=== PATIENT | female | born 1950 | race Caucasian/White ===

== ENCOUNTER 2020-04-11 22:40 | Inpatient (IN) | payer MEDICARE, OTHER ==
[~2020-04-11] VITALS: Ht 154.9 cm; Wt 91.2 kg
[~2020-04-11 22:40] MED LIST: ALBIPROI INH; ALBU8HFA2; ALBU90OI INH; ASPI325EC PO; ASPI81EC; ATEN25 PO; ATOR20 PO; BUPROPION PO; CITA20; DULO30 PO; FLUSAL5005 IH; FLUSAL5005 INH; FURO20 PO; HIGH BLOOD PRESSURE PO; HYDACE5 PO; HYDACE5325 PO; HYDCHL12.5; HYDCHL12.5 PO; HYDCHL25 PO; HYDPAM50; LISHYD1012 PO; LISHYD2025; LISI10 PO; LISI20 PO; LOVA20; METO25ER PO; METO50ER PO; NAPR500 PO; OMEP20ER PO; OMEPRAZOLE MAGN20 MG PO; ONDA8ODT MM; OXYACE5T PO; OXYC5 PO; POLY17UD PO; POTCHL20ER PO; PROM25 PO; SULFAMETHOXAZOLE PO
[2020-04-12 01:26] LABS: BASOPHILS ABSOLUTE AUTO 0.04 K/mm3 (0.00-0.23); BASOPHILS PERCENT AUTO 0 % (0-2); EOSINOPHILS ABSOLUTE AUTO 0.01 K/mm3 (0.00-0.68); EOSINOPHILS PERCENT AUTO 0 % (0-6); Hematocrit 44.4 % (33.0-51.0); IMMATURE GRAN ABSOLUTE AUTO 0.06 K/mm3 (0.00-0.10); IMMATURE GRAN PERCENT AUTO 1 % (0-1); LYMPHOCYTES ABSOLUTE AUTO 1.07 K/mm3 (0.84-5.20); LYMPHOCYTES PERCENT AUTO 8 % (21-46); MONOCYTES ABSOLUTE AUTO 0.73 K/mm3 (0.16-1.47); MONOCYTES PERCENT AUTO 6 % (4-13); Mean Corpuscular HGB 33.7 pg (26.0-34.0); Mean Corpuscular HGB Conc 33.8 g/dL (31.5-36.5); Mean Corpuscular Volume 100 fL (80-100); Mean Platelet Volume 9.9 fL (9.1-12.4); NEUTROPHILS PERCENT AUTO 85 % (41-73); Platelet Count 264 K/mm3 (150-400); RDW Standard Deviation 47.4 fL (35.1-46.3); Red Blood Cell Count 4.45 M/mm3 (3.80-5.20); White Blood Cell Count 12.81 K/mm3 (4.00-11.30)
[2020-04-12 01:38] LABS: Albumin, Blood 3.8 g/dL (3.4-5.0); Bilirubin, Total 0.6 mg/dL (0.1-1.0); Bun/Creatinine Ratio 19.2 (12.0-20.0); Calcium, Blood 9.7 mg/dL (8.5-10.1); Creatinine, Blood 0.99 mg/dL (0.40-1.00); Potassium, Blood 4.1 mmol/L (3.5-5.5); Total Protein, Blood 7.8 g/dL (6.4-8.2)
[2020-04-12 01:41] LABS: International Normalized Ratio 0.97; Prothrombin Time Results 10.4 Sec (9.7-11.5)
[2020-04-12] MEDS ORDERED: KLOR-CON 1010 ME1 PO (04:39)
[2020-04-12] MEDS ORDERED: ATORVASTATIN CA20 MG PO (04:40)
[2020-04-12] MEDS ORDERED: HYDROXYZINE PAM25 MG PO (04:41)
[2020-04-12] MEDS ORDERED: FUROSEMIDE20 MG PO (04:41)
[2020-04-12] MEDS ORDERED: ZOLOFT50 MG PO (04:44)
[2020-04-12] MEDS ORDERED: LISI20 PO (04:46)
--- NOTE | 2020-04-12 05:00 | NUR ---
PT ARRIVED TO UNIT @ 0430 VIA STRETCHER, DENIES PAIN AT THIS TIME, RECEIVED PAIN MEDICATION SHORTLY BEFORE LEAVING ER.
[2020-04-12 06:14] LABS: Influenza A, PCR NEGATIVE (NEGATIVE); Influenza B, PCR NEGATIVE (NEGATIVE); Resp Syncytial Virus, PCR NEGATIVE (NEGATIVE); SARS-Cov-2 (COVID-19) PCR, MMC NEGATIVE (NEGATIVE)
--- NOTE | 2020-04-12 07:31 | NUR ---
SHIFT SUMMARY PT ARRIVED TO THE FLOOR @ 0430, ADMISSION COMPLETE, NPO SINCE MIDNIGHT IN ANTICIPATION FOR SURGERY, S/P R DISTAL FEMUR SPIRAL FX. PAIN WELL CONTROLLED PER EMAR. CALL LIGHT IN REACH, REPORT GIVEN TO DAY RN.
--- NOTE | 2020-04-12 10:25 | NUR ---
CARE COORDINATION REFERRAL - ADMIT: 04/11/20 DISCHARGE: DX: RIGHT FEMUR SHAFT FRACTURE CC: SHERRY BLAYNE CALL: RESIDENCE: HOME CAREGIVER: LYNNETTE GODINEZ, DAUGHTER, RENATA DOTY, DX: BILATERAL OSTEOARTHRITIS OF KNEES, COPD, CAD, HTN, SEE LIST DME: COMPRESSION STOCKINGS CCM: REFERRAL 2020 HOME HEALTH: NONE SUMMARY:
--- NOTE | 2020-04-12 16:30 | NUR ---
SPOKE WITH PT DAUGHTER TOMMY AT THIS TIME AND UPDATED HER ON PT'S PLAN OF CARE.
--- NOTE | 2020-04-12 17:01 | NUR ---
SUMMARY: PT ADMITTED FOR FEMUR FX. NO ACUTE CHANGE TODAY. VSS, A/O, USING CALL LIGHT. PT MEDICATED FOR PAIN PER EMAR. PT HAS HAD SOME ANXIETY ABOUT HER CAT WHO IS AT HOME, AND ITS WELL BEING. PT STATES THAT HER AUNT IS STOPPING BY TO CHECK ON IT. PT UNABLE TO VOID USING BEDPAN. PT ABLE TO TRANSFER TO [facility] WITH 2 ASSIST, FWW AND GAIT BELT TO VOID. SURGERY CONSULTED, PLAN IS FOR FEMUR REPAIR TOMORROW. NO SAFETY CONCERNS AT THIS TIME.
[2020-04-12 20:38] LABS: Source, Urine Catheter
[2020-04-12 20:40] LABS: Blood, Urine 2+ (Neg); Glucose Qualitative, Urine Neg (Neg); Ketones, Urine 4+ (Neg); Leukocyte Esterase, Urine Neg (Neg); Nitrite, Urine Neg (Neg); Protein, Urine 1+ (Neg); Urobilinogen, Urine 1+ (Normal)
[2020-04-12 20:49] LABS: Appearance, Urine Clear (Clear); Bilirubin, Urine 1+ (Neg); Color, Urine Amber (P-Yellow)
[2020-04-12 20:54] LABS: Amorphous Light (0-Heavy); Bacteria Few /hpf; Mucus Light (0-Heavy); Squamous Epithelial Cells Few /hpf (Few); White Blood Cells, Urine Rare /hpf (0-5)
--- NOTE | 2020-04-13 07:28 | NUR ---
SUMMARY PT WITH PLANS FOR OR TODAY.UNABLE TO FULLY ASSESS SKIN BUTTOCKS/BACK DUE TO PAIN WITH REPOSITIONING.PHILIP DRAINING.SUBLIMAZE FOR PAIN IS HELPING, BUT NO TABLE TO COMPLETELY REMOVE PAIN.CHLOR-HEX WASH COMPLETED TO R HIP/THIGH.
--- NOTE | 2020-04-13 10:35 | NUR ---
PT TO OR
--- NOTE | 2020-04-13 10:43 | NUR ---
PT TRANSFERED TO [facility] FROM FLOOR VIA GURNY. History, Chart, Medications and Allergies reviewed before start of procedure. Lungs clear T/O to Auscultation. Patient confirms NPO status and agrees with scheduled surgery. Pre-Op teaching done. Pt verbalizes understanding.
--- NOTE | 2020-04-13 16:04 | NUR ---
ARRIVED TO UNIT FROM PACU REPORTS PAIN ADEQUATELY CONTROLLED. NILE WRAP TO RLE CDI. PWD. ADMINISTERED TXA PER ORDERS. VSS. CALL LIGHT IN REACH.
--- NOTE | 2020-04-13 17:13 | NUR ---
SUMMARY S/P R FEMUR FX REPAIR THIS SHIFT. NILE WRAP TO RLE CDI. VSS. PT SLEEPING AT THIS TIME. DOES NOT APPEAR TO BE IN ANY DISTRESS. CALL LIGHT IN REACH. TXA COMPLETED POST OP PER ORDERS. PHILIP DRAINING DARK YELLOW URINE.
--- NOTE | 2020-04-14 07:35 | NUR ---
SUMMARY PT REQUIRING FREQUENT REDIRECT TONIGHT FOR REPOSITIONING AND CARE.PT TENDSING TO GET ANXIOUS AND GRABS AT TUBES AND RAILS BEFORE WE EVEN START MOVING HER. ALTHOUGH IS ABLE TO ASSSIT FOR BED REPOSITIONING SIDE WHEN CALMS AND FOLLOWS DIRECT. PT HAS HAD SOME FORGETFULNESS TONIGHT AND REPEATS SELF SINCE STARTING PAIN MEDS. I SPOKE WITH DAY RN ABOUT POSSIBILITY OF GETTING SOMETHING ELSE PO FOR PAIN WITH ROUNDS.? TRAMADOL?
--- NOTE | 2020-04-14 10:30 | NUR ---
pt worked w/therapy
--- NOTE | 2020-04-14 14:40 | NUR ---
04/14/20- PT HAS WORKED WITH PT TODAY, SHE IS NON-WEIGHT BEARING ON RIGHT LEG. PT IS RECOMMENDING D/C TO SNF AND FWW IF SHE DOES NOT ALREADY HAVE ONE. NO PLAN FOR D/C AT THIS TIME. -TEVIN 04/13/20- PT HAD SURGERY TODAY.-TEVIN
--- NOTE | 2020-04-14 17:25 | NUR ---
SUMMARY NO ACUTE CHANGES T/O SHIFT. PT WORKED W/THERAPY. WAS ABLE TO STAND AT BEDSIDE W/NWB BUT NOT ABLE TO PIVOT TO CHAIR. MEDICATED PER ORDERS FOR PAIN T/O SHIFT. CALL LIGHT IN REACH.
[2020-04-15 04:42] LABS: BASOPHILS ABSOLUTE AUTO 0.05 K/mm3 (0.00-0.23); BASOPHILS PERCENT AUTO 1 % (0-2); EOSINOPHILS ABSOLUTE AUTO 0.14 K/mm3 (0.00-0.68); EOSINOPHILS PERCENT AUTO 2 % (0-6); Hematocrit 36.2 % (33.0-51.0); Hemoglobin 11.9 g/dL (11.5-16.0); IMMATURE GRAN ABSOLUTE AUTO 0.02 K/mm3 (0.00-0.10); IMMATURE GRAN PERCENT AUTO 0 % (0-1); LYMPHOCYTES ABSOLUTE AUTO 1.65 K/mm3 (0.84-5.20); LYMPHOCYTES PERCENT AUTO 26 % (21-46); MONOCYTES ABSOLUTE AUTO 0.81 K/mm3 (0.16-1.47); MONOCYTES PERCENT AUTO 13 % (4-13); Mean Corpuscular HGB 33.7 pg (26.0-34.0); Mean Corpuscular HGB Conc 32.9 g/dL (31.5-36.5); Mean Corpuscular Volume 103 fL (80-100); Mean Platelet Volume 9.4 fL (9.1-12.4); NEUTROPHILS ABSOLUTE AUTO 3.77 K/mm3 (1.96-9.15); NEUTROPHILS PERCENT AUTO 59 % (41-73); Platelet Count 211 K/mm3 (150-400); RDW Standard Deviation 48.9 fL (35.1-46.3); Red Blood Cell Count 3.53 M/mm3 (3.80-5.20); White Blood Cell Count 6.44 K/mm3 (4.00-11.30)
[2020-04-15 05:08] LABS: Albumin, Blood 2.5 g/dL (3.4-5.0); Anion Gap 4 mmol/L (6-16); Blood Urea Nitrogen 21 mg/dL (8-24); Bun/Creatinine Ratio 29.5 (12.0-20.0); CO2, Blood 30 mmol/L (21-32); Calcium, Blood 8.9 mg/dL (8.5-10.1); Chloride, Blood 107 mmol/L (98-108); Creatinine, Blood 0.71 mg/dL (0.40-1.00); Glomerular Filtration Rate >60 (60-); Glucose, Blood 110 mg/dL (70-99); Magnesium, Blood 1.8 mg/dL (1.6-2.4); Phosphorus, Blood 2.9 mg/dL (2.5-4.9); Potassium, Blood 3.8 mmol/L (3.5-5.5); Sodium, Blood 141 mmol/L (136-145); Thyroid Stimulating Hormone 0.234 uIU/mL (0.360-4.800)
--- NOTE | 2020-04-15 05:22 | NUR ---
SHIFT SUMMARY NO ACUTE CHANGES AT THIS TIME. PT SLEPT T/O SHIFT. PT REPORT PAIN, PAIN MANAGED WITH 10MG NORCO Q4, REPORTS RELIEF AFTER PAIN MEDS. VSS. TOTAL OF URINE OUTPUT OF 200MLS T/O THE SHIFT. WITH DARK YELLOW URINE. CATHETER IN PLACED, PATENT AND INTACT. ENC PT TO DRINK MORE FLUIDS. PT TOLERATING REG DIET. PT DENIES N/V. R SIDE FEMUR SURG SITE WITH AQUACEL DRESSING REMAIN CDI. CALL LIGHT WITHIN REACH.
--- NOTE | 2020-04-15 17:33 | NUR ---
SHIFT SUMMARY PT A&OX4, VSS, POD 2 RLE ORIF, AQUACEL DRY/INTACT. PAIN MANAGED WITH 10 MG NORCO. SANDRA PO, DENIES N&V. PHILIP OUT, PT VOIDED 100. STAND W/FWW/GB, CHAIR/BSC. EXTREMELY HABEMATOLEL, SPEAK INTO L EAR/HEARING AID. DAUGHTERS AT BEDSIDE, BOTH REPORT PT AND THEY NOW AGREE PT SHOULD GO TO SNF. WILL REPORT TO ONCOMING ARLET RN.
[2020-04-16 04:31] LABS: BASOPHILS ABSOLUTE AUTO 0.04 K/mm3 (0.00-0.23); BASOPHILS PERCENT AUTO 1 % (0-2); EOSINOPHILS ABSOLUTE AUTO 0.18 K/mm3 (0.00-0.68); EOSINOPHILS PERCENT AUTO 4 % (0-6); Hematocrit 37.6 % (33.0-51.0); Hemoglobin 11.9 g/dL (11.5-16.0); IMMATURE GRAN ABSOLUTE AUTO 0.02 K/mm3 (0.00-0.10); IMMATURE GRAN PERCENT AUTO 0 % (0-1); LYMPHOCYTES ABSOLUTE AUTO 1.46 K/mm3 (0.84-5.20); LYMPHOCYTES PERCENT AUTO 29 % (21-46); MONOCYTES ABSOLUTE AUTO 0.72 K/mm3 (0.16-1.47); MONOCYTES PERCENT AUTO 15 % (4-13); Mean Corpuscular HGB Conc 31.6 g/dL (31.5-36.5); Mean Corpuscular Volume 104 fL (80-100); Mean Platelet Volume 9.5 fL (9.1-12.4); NEUTROPHILS ABSOLUTE AUTO 2.54 K/mm3 (1.96-9.15); NEUTROPHILS PERCENT AUTO 51 % (41-73); Platelet Count 231 K/mm3 (150-400); RDW Coefficient Variation 12.9 % (11.7-14.2); RDW Standard Deviation 49.1 fL (35.1-46.3); Red Blood Cell Count 3.61 M/mm3 (3.80-5.20); White Blood Cell Count 4.96 K/mm3 (4.00-11.30)
[2020-04-16 04:56] LABS: Albumin, Blood 2.4 g/dL (3.4-5.0); Anion Gap 5 mmol/L (6-16); Blood Urea Nitrogen 19 mg/dL (8-24); Bun/Creatinine Ratio 33.6 (12.0-20.0); CO2, Blood 30 mmol/L (21-32); Calcium, Blood 9.1 mg/dL (8.5-10.1); Chloride, Blood 108 mmol/L (98-108); Creatinine, Blood 0.57 mg/dL (0.40-1.00); Glomerular Filtration Rate >60 (60-); Glucose, Blood 103 mg/dL (70-99); Magnesium, Blood 1.7 mg/dL (1.6-2.4); Phosphorus, Blood 2.5 mg/dL (2.5-4.9); Sodium, Blood 143 mmol/L (136-145)
--- NOTE | 2020-04-16 05:08 | NUR ---
SHIFT SUMMARY POD#3. AAOX4/[place]. DISCOMFORT DECREASED WITH 2 OXYCODONE X2 THIS SHIFT. NO NAUSEA/EMESIS. DRESSING TO RIGHT LE C/D/I. SIPS FLUIDS T/O NIGHT. RESTED WELL. UP TO BSC 1 PERSON MODERATE ASSISTANCE. 320cc YELLOW URINE OUT. PT CURRENTLY RESTING IN BED WITH CALL LIGHT IN REACH.
--- NOTE | 2020-04-16 15:40 | NUR ---
SHIFT SUMMARY PT A&OX4, VSS/RA. POD3 RLE ORIF, AQUACEL X2 CDI, TEDS/SCDS; STAND PIVOT WITH FWW & GB, NWB TO BSC AND CHAIR/BED. PAIN MANAGED WITH 10 MG OXY AND TYLENOL. VOIDING WELL; BOWEL CARE GIVEN. SANDRA PO, DENIES N&V. DAUGHTERS AT BEDSIDE; REPORT PT IS AGREEABLE TO SNF. WILL REPORT TO NEXT RN.
--- NOTE | 2020-04-16 19:31 | NUR ---
RECEIVED REPORT FROM DAY SHIFT RN. PT RESTING QUIETLY WITH SNORING RESPIRATIONS.
--- NOTE | 2020-04-17 08:00 | NUR ---
SHIFT SUMMARY: MITCHELL IS A&OX4, SLOW TO RESPOND AND VERY HARD OF HEARING. VSS, NO ACUTE EVENTS OVERNIGHT. SHE IS TOLERATING PO INTAKE WELL. SHE REPORTS ADEQUATE PAIN CONTROL WITH 2 TABLETS OF OXYCODONE. SHE DOES REPORT SOME FEELINGS OF ANXIETY OCCASIONALLY, BUT HAS NOT REQUESTED MEDICATION FOR ANXIETY THIS SHIFT. AQUACELL ARE C/D&I. SHE IS LYING IN BED WITH THE CALL LIGHT IN REACH. REPORT GIVEN TO DAY SHIFT RN.
--- NOTE | 2020-04-17 18:05 | NUR ---
SHIFT SUMMARY PT HAS DONE WELL TODAY. STATES SHE FEELS STRONGER. UP TO CHAIR TWICE AND BSC WELL. EATING, DRINKING, VOIDING WELL. NO BM DESPITE BOWEL CARE.
--- NOTE | 2020-04-18 06:27 | NUR ---
SUMMARY PT ABLE TO GET OOB WITH ASSIST TONIGHT.VERB PAIN MEDS EFFECTIVE THIS AM. MET PTS GOAL OF 5.PT HAD BM TONIGHT.PLANS FOR SNF SOON.
[2020-04-18 11:43] LABS: Influenza A, PCR NEGATIVE (NEGATIVE); Influenza B, PCR NEGATIVE (NEGATIVE); Resp Syncytial Virus, PCR NEGATIVE (NEGATIVE); SARS-Cov-2 (COVID-19) PCR, MMC NEGATIVE (NEGATIVE)
--- NOTE | 2020-04-18 15:14 | NUR ---
TRANSFER TO [facility] VIA W/C. REPORT CALLED; AQUACELS & PACKET SENT. EATING, DRINKING, & VOIDING WELL. PAIN WELL CONTROLLED.
== END 2020-04-18 15:05 | DRG 482 ==
LOC: ER 22:40 → ERHOLD 04-12 03:00 → SURS 04-12 03:00
PROVIDERS: Emergency Medicine; Internal Medicine; Internal Medicine Gastroenterology; Orthopaedic Surgery; ADMIT Internal Medicine
PROC: 3E02340 Introduction of Influenza Vaccine into Muscle, Percutaneous Approach (ICD-10-PCS; 2020-04-12)
PROC: 0QSB04Z Reposition Right Lower Femur with Internal Fixation Device, Open Approach (ICD-10-PCS; principal; 2020-04-13 11:15)
DX: S72.411A Displaced unspecified condyle fracture of lower end of right femur, initial encounter for closed fracture (principal); I25.2 Old myocardial infarction; I10 Essential (primary) hypertension; F17.210 Nicotine dependence, cigarettes, uncomplicated; E66.9 Obesity, unspecified; Z20.822 Contact with and (suspected) exposure to COVID-19; Z68.37 Body mass index [BMI] 37.0-37.9, adult; J43.9 Emphysema, unspecified; Y92.9 Unspecified place or not applicable; W18.30XA Fall on same level, unspecified, initial encounter; K21.9 Gastro-esophageal reflux disease without esophagitis; F32.9 Major depressive disorder, single episode, unspecified; Z23 Encounter for immunization
CPT/HCPCS: 0241U; 36415; 71045; 72170; 73552; 73560-RT; 73590; 80053; 80069; 81001; 82947; 83735; 84443; 85025; 85610; 85730; 93005; 93010; 94640; 94760; 97110; 97162; 97530; 99285-25; A9270; C1713; C1769; G0008; J0690; J1170; J1644; J1650; J2250; J2270; J2405; J2704; J3010; J7040; J7120; Q2038

== ENCOUNTER 2020-06-30 02:29 | Emergency (ER) | payer MEDICARE, OTHER ==
[~2020-06-30] VITALS: Ht 154.9 cm; Wt 90.7 kg
[~2020-06-30 02:29] MED LIST changes: +ATORVASTATIN CA20 MG PO; +FUROSEMIDE20 MG PO; +HYDROXYZINE PAM25 MG PO; +KLOR-CON 1010 ME1 PO; +ZOLOFT50 MG PO
[2020-06-30 02:57] LABS: BASOPHILS ABSOLUTE AUTO 0.05 K/mm3 (0.00-0.23); BASOPHILS PERCENT AUTO 0 % (0-2); EOSINOPHILS ABSOLUTE AUTO 0.01 K/mm3 (0.00-0.68); EOSINOPHILS PERCENT AUTO 0 % (0-6); Hematocrit 44.3 % (33.0-51.0); Hemoglobin 14.5 g/dL (11.5-16.0); IMMATURE GRAN ABSOLUTE AUTO 0.04 K/mm3 (0.00-0.10); IMMATURE GRAN PERCENT AUTO 0 % (0-1); LYMPHOCYTES ABSOLUTE AUTO 1.35 K/mm3 (0.84-5.20); LYMPHOCYTES PERCENT AUTO 11 % (21-46); MONOCYTES ABSOLUTE AUTO 0.56 K/mm3 (0.16-1.47); MONOCYTES PERCENT AUTO 5 % (4-13); Mean Corpuscular HGB 34.1 pg (26.0-34.0); Mean Corpuscular HGB Conc 32.7 g/dL (31.5-36.5); Mean Corpuscular Volume 104 fL (80-100); Mean Platelet Volume 8.4 fL (9.1-12.4); NEUTROPHILS ABSOLUTE AUTO 10.25 K/mm3 (1.96-9.15); NEUTROPHILS PERCENT AUTO 84 % (41-73); Platelet Count 466 K/mm3 (150-400); RDW Coefficient Variation 16.8 % (11.7-14.2); RDW Standard Deviation 65.1 fL (35.1-46.3); Red Blood Cell Count 4.25 M/mm3 (3.80-5.20); White Blood Cell Count 12.26 K/mm3 (4.00-11.30)
[2020-06-30 03:12] LABS: Alanine Aminotransfer (ALT/SGP 25 U/L (12-78); Albumin, Blood 3.5 g/dL (3.4-5.0); Albumin/Globulin Ratio 0.9 (0.8-1.8); Alk Phos 76 U/L (50-136); Anion Gap 10 mmol/L (6-16); Aspartate Aminotrans (AST/SGOT 27 U/L (12-37); Bilirubin, Total 0.3 mg/dL (0.1-1.0); Blood Urea Nitrogen 13 mg/dL (8-24); Bun/Creatinine Ratio 20.1 (12.0-20.0); CO2, Blood 22 mmol/L (21-32); Calcium, Blood 8.4 mg/dL (8.5-10.1); Chloride, Blood 109 mmol/L (98-108); Creatinine, Blood 0.65 mg/dL (0.40-1.00); Ethanol (Alcohol), Blood, Med 252 mg/dL; Globulin, Blood 3.7 g/dL (2.2-4.0); Glomerular Filtration Rate >60 (60-); Glucose, Blood 101 mg/dL (70-99); Potassium, Blood 4.2 mmol/L (3.5-5.5); Sodium, Blood 141 mmol/L (136-145); Total Protein, Blood 7.2 g/dL (6.4-8.2)
[2020-06-30] MEDS ORDERED: ELIQUIS5 MG PO (03:23)
[2020-06-30] MEDS ORDERED: ZOCOR20 MG PO (03:23)
[2020-06-30 05:00] LABS: Chloride (POC) 106 mmol/L (98-108); Creatinine (POC) 0.9 mg/dL (0.6-1.0); Glucose (ISTAT POC) 171 mg/dL (70-99); Hemoglobin (POC) 15.6 g/dL (12.0-16.0); Potassium (POC) 3.9 mmol/L (3.5-5.5); Sodium (POC) 141 mmol/L (135-148); Total CO2 (POC) 24 mmol/L (21-32)
== END 2020-06-30 06:42 | disposition home or self-care (01) ==
LOC: ER 02:29
PROVIDERS: Emergency Medicine
DX: F10.129 Alcohol abuse with intoxication, unspecified (principal); I25.2 Old myocardial infarction; F17.200 Nicotine dependence, unspecified, uncomplicated; Z86.73 Personal history of transient ischemic attack (TIA), and cerebral infarction without residual deficits; Z79.899 Other long term (current) drug therapy
CPT/HCPCS: 80047; 80053; 83690; 85014; 85025; 93005; 93010; 96374; 96375; 99284-25; C9113; G0480; J3411; J3475; J7042

== ENCOUNTER → 2020-07-20 | Outpatient (CLI) | payer MEDICARE, OTHER ==
[~2020-07-20] MED LIST changes: +ELIQUIS5 MG PO; +ZOCOR20 MG PO
== END ==
LOC: LAB EV 16:01 → LAB SHORT 16:01
DX: Z02.83 Encounter for blood-alcohol and blood-drug test (principal); Z79.899 Other long term (current) drug therapy

== ENCOUNTER 2021-01-15 14:40 | Emergency (ER) | payer MEDICARE, OTHER ==
[~2021-01-15] VITALS: Ht 154.9 cm; Wt 81.7 kg
[~2021-01-15 14:40] MED LIST changes: +ATOR40TA PO; -ATORVASTATIN CA20 MG PO
[2021-01-15] MEDS ORDERED: FLUT1DIS2 INH (15:28)
[2021-01-15] MEDS ORDERED: ALBU90OI INH (15:29)
[2021-01-15 15:52] LABS: BASOPHILS ABSOLUTE AUTO 0.03 K/mm3 (0.00-0.23); BASOPHILS PERCENT AUTO 0 % (0-2); EOSINOPHILS PERCENT AUTO 0 % (0-6); Hematocrit 48.7 % (33.0-51.0); Hemoglobin 16.3 g/dL (11.5-16.0); IMMATURE GRAN ABSOLUTE AUTO 0.06 K/mm3 (0.00-0.10); IMMATURE GRAN PERCENT AUTO 1 % (0-1); LYMPHOCYTES ABSOLUTE AUTO 0.63 K/mm3 (0.84-5.20); LYMPHOCYTES PERCENT AUTO 5 % (21-46); MONOCYTES ABSOLUTE AUTO 0.67 K/mm3 (0.16-1.47); MONOCYTES PERCENT AUTO 5 % (4-13); Mean Corpuscular HGB 35.4 pg (26.0-34.0); Mean Corpuscular HGB Conc 33.5 g/dL (31.5-36.5); Mean Corpuscular Volume 106 fL (80-100); Mean Platelet Volume 8.7 fL (9.1-12.4); NEUTROPHILS PERCENT AUTO 89 % (41-73); Platelet Count 352 K/mm3 (150-400); RDW Coefficient Variation 12.8 % (11.7-14.2); RDW Standard Deviation 50.4 fL (35.1-46.3); Red Blood Cell Count 4.61 M/mm3 (3.80-5.20); White Blood Cell Count 12.89 K/mm3 (4.00-11.30)
[2021-01-15 16:12] LABS: Alanine Aminotransfer (ALT/SGP 20 U/L (12-78); Alk Phos 72 U/L (50-136); Anion Gap 8 mmol/L (6-16); Aspartate Aminotrans (AST/SGOT 40 U/L (12-37); Bilirubin, Total 0.2 mg/dL (0.1-1.0); Blood Urea Nitrogen 37 mg/dL (8-24); Bun/Creatinine Ratio 58.7 (12.0-20.0); CO2, Blood 22 mmol/L (21-32); Calcium, Blood 9.2 mg/dL (8.5-10.1); Chloride, Blood 111 mmol/L (98-108); Creatinine, Blood 0.63 mg/dL (0.40-1.00); Globulin, Blood 4.1 g/dL (2.2-4.0); Glomerular Filtration Rate >60 (60-); Glucose, Blood 97 mg/dL (70-99); Potassium, Blood 5.1 mmol/L (3.5-5.5); Sodium, Blood 141 mmol/L (136-145); Total Protein, Blood 8.1 g/dL (6.4-8.2)
== END 2021-01-15 16:30 | disposition home or self-care (01) ==
LOC: ER 14:40
PROVIDERS: Emergency Medicine
DX: S61.215A Laceration without foreign body of left ring finger without damage to nail, initial encounter (principal); I25.2 Old myocardial infarction; F17.200 Nicotine dependence, unspecified, uncomplicated; Z86.73 Personal history of transient ischemic attack (TIA), and cerebral infarction without residual deficits; Z79.899 Other long term (current) drug therapy; W18.30XA Fall on same level, unspecified, initial encounter
CPT/HCPCS: 12001; 36415; 70450; 80053; 85025; 99284-25

== ENCOUNTER 2022-10-07 20:57 | Emergency (ER) | payer MEDICARE, OTHER ==
[~2022-10-07] VITALS: Ht 154.9 cm; Wt 108.9 kg
[~2022-10-07 20:57] MED LIST changes: +FLUT1DIS2 INH
[2022-10-07 20:59] VITALS: BP 154/88
[2022-10-07] MEDS ORDERED: CEPH500 PO (21:49)
== END 2022-10-07 22:00 | disposition home or self-care (01) ==
LOC: ER 20:57
DX: L03.115 Cellulitis of right lower limb (principal); L97.819 Non-pressure chronic ulcer of other part of right lower leg with unspecified severity; I25.2 Old myocardial infarction; F10.129 Alcohol abuse with intoxication, unspecified; F17.200 Nicotine dependence, unspecified, uncomplicated; Z79.01 Long term (current) use of anticoagulants; Z79.899 Other long term (current) drug therapy; Z86.73 Personal history of transient ischemic attack (TIA), and cerebral infarction without residual deficits
CPT/HCPCS: 96372; 99283; A9270; J1885

== ENCOUNTER → 2022-10-14 | Outpatient (CLI) | payer MEDICARE, OTHER ==
[~2022-10-14] MED LIST changes: +CEPH500 PO
== END ==
LOC: LAB SHORT 14:32 → LAB 14:32
DX: L97.909 Non-pressure chronic ulcer of unspecified part of unspecified lower leg with unspecified severity (principal); L03.90 Cellulitis, unspecified
CPT/HCPCS: 87070; 87075; 87205

== ENCOUNTER 2022-12-23 08:59 | Emergency (ER) | payer MEDICARE, OTHER ==
[~2022-12-23] VITALS: Ht 154.9 cm; Wt 108.9 kg
[2022-12-23 10:29] LABS: BASOPHILS ABSOLUTE AUTO 0.06 K/mm3 (0.00-0.23); BASOPHILS PERCENT AUTO 1 % (0-2); EOSINOPHILS ABSOLUTE AUTO 0.01 K/mm3 (0.00-0.68); EOSINOPHILS PERCENT AUTO 0 % (0-6); Hematocrit 47.3 % (33.0-51.0); IMMATURE GRAN ABSOLUTE AUTO 0.03 K/mm3 (0.00-0.10); IMMATURE GRAN PERCENT AUTO 0 % (0-1); LYMPHOCYTES ABSOLUTE AUTO 0.86 K/mm3 (0.84-5.20); LYMPHOCYTES PERCENT AUTO 9 % (21-46); MONOCYTES ABSOLUTE AUTO 0.49 K/mm3 (0.16-1.47); MONOCYTES PERCENT AUTO 5 % (4-13); Mean Corpuscular HGB 35.3 pg (26.0-34.0); Mean Corpuscular HGB Conc 33.8 g/dL (31.5-36.5); Mean Corpuscular Volume 104 fL (80-100); Mean Platelet Volume 8.8 fL (9.1-12.4); NEUTROPHILS ABSOLUTE AUTO 8.58 K/mm3 (1.96-9.15); NEUTROPHILS PERCENT AUTO 86 % (41-73); Platelet Count 324 K/mm3 (150-400); RDW Coefficient Variation 12.5 % (11.7-14.2); RDW Standard Deviation 48.6 fL (35.1-46.3); Red Blood Cell Count 4.53 M/mm3 (3.80-5.20); White Blood Cell Count 10.03 K/mm3 (4.00-11.30)
[2022-12-23 10:55] LABS: Alanine Aminotransfer (ALT/SGP 21 U/L (12-78); Albumin, Blood 3.8 g/dL (3.4-5.0); Alk Phos 90 U/L (50-136); Anion Gap 5 mmol/L (6-16); Aspartate Aminotrans (AST/SGOT 27 U/L (12-37); Bilirubin, Total 0.5 mg/dL (0.1-1.0); Blood Urea Nitrogen 9 mg/dL (8-24); Bun/Creatinine Ratio 15.6 (12.0-20.0); CO2, Blood 28 mmol/L (21-32); Calcium, Blood 9.1 mg/dL (8.5-10.1); Chloride, Blood 108 mmol/L (98-108); Creatinine, Blood 0.58 mg/dL (0.40-1.00); Ethanol (Alcohol), Blood, Med <3 mg/dL; Globulin, Blood 3.7 g/dL (2.2-4.0); Glomerular Filtration Rate 97 (60-); Glucose, Blood 93 mg/dL (70-99); Potassium, Blood 4.8 mmol/L (3.5-5.5); Sodium, Blood 141 mmol/L (136-145); Total Protein, Blood 7.5 g/dL (6.4-8.2)
[2022-12-23 12:03] LABS: Source, Urine Straight Cath
[2022-12-23 12:09] LABS: Appearance, Urine Clear (Clear); Bilirubin, Urine Neg (Neg); Blood, Urine 1+ (Neg); Color, Urine Yellow (P-Yellow); Glucose Qualitative, Urine Neg (Neg); Ketones, Urine 2+ (Neg); Leukocyte Esterase, Urine Neg (Neg); Nitrite, Urine Neg (Neg); Protein, Urine Neg (Neg); Urobilinogen, Urine NORM (Normal)
[2022-12-23 12:40] LABS: Amorphous Light (0-Heavy); Bacteria Few /hpf; Mucus Light (0-Heavy); Squamous Epithelial Cells Few /hpf (Few); White Blood Cells, Urine 0-2 /hpf (0-5)
[2022-12-23 14:00] VITALS: BP 140/80
== END 2022-12-23 14:10 | disposition home or self-care (01) ==
LOC: ER 08:59
PROVIDERS: Emergency Medicine
DX: S30.0XXA Contusion of lower back and pelvis, initial encounter (principal); W18.30XA Fall on same level, unspecified, initial encounter; Z79.899 Other long term (current) drug therapy; I25.2 Old myocardial infarction; F17.210 Nicotine dependence, cigarettes, uncomplicated
CPT/HCPCS: 70450; 72100; 80053; 81001; 82550; 85025; 96374; 96375; 99285-25; J2405; J3010

== ENCOUNTER 2023-12-17 18:29 | Emergency (ER) | payer MEDICARE, OTHER ==
[~2023-12-17] VITALS: Ht 154.9 cm; Wt 90.7 kg
[2023-12-17] MEDS ORDERED: Diphth,Pertuss(Acell),Tet Vac 0.5 ML VIAL IM ONE (21:25)
[2023-12-17 22:11] LABS: RDW Coefficient Variation 14.7 % (11.7-14.2)
[2023-12-17 22:21] LABS: Hematocrit 41.5 % (33.0-51.0); Hemoglobin 14.2 g/dL (11.5-16.0); Mean Corpuscular HGB 35.6 pg (26.0-34.0); Mean Corpuscular HGB Conc 34.2 g/dL (31.5-36.5); Mean Corpuscular Volume 104 fL (80-100); NRBC ABSOLUTE 0.02 K/mm3 (0.00-0.02); NRBC Auto 0.2 /100 WBC (0.0-0.2); Platelet Count 298 K/mm3 (150-400); RDW Standard Deviation 56.4 fL (35.1-46.3); Red Blood Cell Count 3.99 M/mm3 (3.80-5.20); White Blood Cell Count 8.58 K/mm3 (4.00-11.30)
[2023-12-17 22:24] LABS: International Normalized Ratio 1.02; Prothrombin Time Results 10.9 Sec (9.7-11.5)
[2023-12-17 22:27] LABS: Mean Platelet Volume 9.1 fL (9.1-12.4)
[2023-12-17 22:33] LABS: Albumin, Blood 3.7 g/dL (3.4-5.0); Bilirubin, Total 0.5 mg/dL (0.1-1.0); Creatinine, Blood 0.54 mg/dL (0.40-1.00); Globulin, Blood 3.6 g/dL (2.2-4.0); Magnesium, Blood 1.9 mg/dL (1.6-2.4); Potassium, Blood 4.5 mmol/L (3.5-5.5); Total Protein, Blood 7.3 g/dL (6.4-8.2)
[2023-12-17 22:37] LABS: BAND PERCENT MAN 2 % (0-8); BASOPHILS PERCENT MAN 0 % (0-2); EOSINOPHILS PERCENT MAN 0 % (0-6); LYMPHOCYTES ABSOLUTE MAN 1.28 K/mm3 (0.84-5.20); LYMPHOCYTES PERCENT MAN 15 % (21-46); MONOCYTES ABSOLUTE MAN 0.08 K/mm3 (0.16-1.47); MONOCYTES PERCENT MAN 1 % (4-13); SEG NEUTROPHILS PERCENT MAN 82 % (41-73); TOTAL CELLS COUNTED 100
[2023-12-17] MEDS ORDERED: Acetaminophen 325 MG TABLET PO ONE (22:45)
[2023-12-18 02:00] VITALS: BP 159/83
== END 2023-12-18 02:00 | disposition home or self-care (01) ==
LOC: ER 18:29
PROVIDERS: Emergency Medicine
DX: S41.112A Laceration without foreign body of left upper arm, initial encounter (principal); S09.90XA Unspecified injury of head, initial encounter; W18.30XA Fall on same level, unspecified, initial encounter; F10.129 Alcohol abuse with intoxication, unspecified; I25.2 Old myocardial infarction; F17.210 Nicotine dependence, cigarettes, uncomplicated; Z79.01 Long term (current) use of anticoagulants; Z79.899 Other long term (current) drug therapy
CPT/HCPCS: 12001; 70450; 72125; 72131; 72192; 80053; 80320; 83735; 85025; 85610; 90471; 90715; 99284-25; A9270

== ENCOUNTER 2023-12-18 13:52 | Observation (INO) | payer MEDICARE, OTHER ==
[~2023-12-18] VITALS: Ht 154.9 cm; Wt 85.8 kg
[2023-12-18] MEDS ORDERED: Acetaminophen 325 MG TABLET PO ONE (16:45)
[2023-12-18 17:53] LABS: Source, Urine Straight Cath
[2023-12-18 17:56] LABS: BASOPHILS ABSOLUTE AUTO 0.02 K/mm3 (0.00-0.23); BASOPHILS PERCENT AUTO 0 % (0-2); EOSINOPHILS ABSOLUTE AUTO 0.03 K/mm3 (0.00-0.68); EOSINOPHILS PERCENT AUTO 0 % (0-6); Hematocrit 42.2 % (33.0-51.0); Hemoglobin 14.4 g/dL (11.5-16.0); IMMATURE GRAN ABSOLUTE AUTO 0.04 K/mm3 (0.00-0.10); IMMATURE GRAN PERCENT AUTO 1 % (0-1); LYMPHOCYTES ABSOLUTE AUTO 1.01 K/mm3 (0.84-5.20); LYMPHOCYTES PERCENT AUTO 11 % (21-46); MONOCYTES ABSOLUTE AUTO 0.42 K/mm3 (0.16-1.47); MONOCYTES PERCENT AUTO 5 % (4-13); Mean Corpuscular HGB 35.6 pg (26.0-34.0); Mean Corpuscular HGB Conc 34.1 g/dL (31.5-36.5); Mean Corpuscular Volume 105 fL (80-100); Mean Platelet Volume 9.1 fL (9.1-12.4); NEUTROPHILS ABSOLUTE AUTO 7.31 K/mm3 (1.96-9.15); NEUTROPHILS PERCENT AUTO 83 % (41-73); Platelet Count 295 K/mm3 (150-400); RDW Coefficient Variation 14.9 % (11.7-14.2); RDW Standard Deviation 57.4 fL (35.1-46.3); Red Blood Cell Count 4.04 M/mm3 (3.80-5.20); White Blood Cell Count 8.83 K/mm3 (4.00-11.30)
[2023-12-18 17:57] LABS: Appearance, Urine Clear (Clear); Bilirubin, Urine Neg (Neg); Blood, Urine 4+ (Neg); Color, Urine Yellow (P-Yellow); Glucose Qualitative, Urine Neg (Neg); Ketones, Urine 3+ (Neg); Leukocyte Esterase, Urine Neg (Neg); Nitrite, Urine Neg (Neg); Protein, Urine 1+ (Neg); Urobilinogen, Urine NORM (Normal)
[2023-12-18 18:07] LABS: White Blood Cells, Urine 0-2 /hpf (0-5)
[2023-12-18 18:08] LABS: Bacteria Few /hpf; Squamous Epithelial Cells Few /hpf (Few)
[2023-12-18 18:20] LABS: Albumin, Blood 3.4 g/dL (3.4-5.0); Albumin/Globulin Ratio 0.8 (0.8-1.8); Bilirubin, Total 1.2 mg/dL (0.1-1.0); Bun/Creatinine Ratio 15.8 (12.0-20.0); Calcium, Blood 9.3 mg/dL (8.5-10.1); Creatinine, Blood 0.63 mg/dL (0.40-1.00); Potassium, Blood 3.9 mmol/L (3.5-5.5); Total Protein, Blood 7.4 g/dL (6.4-8.2)
[2023-12-18 18:38] LABS: Influenza A, PCR NEGATIVE (NEGATIVE); Influenza B, PCR NEGATIVE (NEGATIVE); Resp Syncytial Virus, PCR NEGATIVE (NEGATIVE); SARS-Cov-2 (COVID-19) PCR, MMC NEGATIVE (NEGATIVE)
[2023-12-19] MEDS ORDERED: Acetaminophen 325 MG TABLET PO PRN (05:20)
[2023-12-19] MEDS ORDERED: Ketorolac Tromethamine 30mg Vial IV ONE (09:45)
[2023-12-19] MEDS ORDERED: HyDROXyzine HCl 25 MG Tab PO ONE (14:20)
[2023-12-19] MEDS ORDERED: OxyCODONE HCL 5 MG TAB PO ONE (14:35)
[2023-12-19] MEDS ORDERED: HyDROXyzine HCl 25 MG Tab PO PRN (14:55)
[2023-12-19] MEDS ORDERED: FLU VACC TS2024-25(6MOS UP)/PF 45 MCG/0.5 ML SYRINGE IM SCH (15:00)
[2023-12-19] MEDS ORDERED: Mometasone/Formoterol MDI 100/5 mcg 13 GM INH SCH (15:05)
[2023-12-19] MEDS ORDERED: Furosemide 20 MG Tab PO PRN (15:05)
[2023-12-19] MEDS ORDERED: Albuterol HFA200 ACT/6.7 GM INH INH PRN (15:05)
[2023-12-19] MEDS ORDERED: HYDROcodone 5-APAP 325 TAB PO PRN (15:45)
[2023-12-19] MEDS ORDERED: Nicotine 14 MG PATCH TOP SCH (15:56)
[2023-12-19 16:40] VITALS: BP 160/95
--- NOTE | 2023-12-19 19:12 | NUR ---
ADMISSION NOTE/SHIFT SUMMARY PATIENT ALERT, ANXIOUS, ORIENTED TO SELF AND LOCATION. ABLE TO MAKE NEEDS KNOWN. COMPLAINING OF BACK PAIN R/T FALL AT HOME WHILE INTOXICATED. CURRENT 1/2 PACK SMOKER DAILY, NICOTINE PATCH PLACED TO LEFT ARM. ADMISSION DOCUMENTATION COMPLETED WITH PATIENT, PATIENT NOT A GOOD HISTORIAN AND UNABLE TO RECOLLECT HOME MEDICATIONS. DOES STATE SHE DOES NOT TAKE HER HOME MEDICATIONS PRESCRIBED AND ONLY TAKES ADVAIR DAILY. DYSPNEA NOTED WITH EXERTION, REPORT FROM ED STATES 3 PERSON TRANSFER. CAREGIVER, GLADYS, CAME TO VISIT PATIENT THIS EVENING. DURING SKIN ASSESSMENT FOUND 2 FLUID FILLED BLISTERS TO LEFT UPPER ARM AND INCISION WITH 4 ALEJANDRO. BILATERAL LEGS DISCOLORATION WITH DRY AND SCALING SKIN. NO OTHER CONCERNS AT THIS TIME.
[2023-12-19 19:41] VITALS: BP 152/86
[2023-12-19] MEDS ORDERED: Apixaban 5 MG Tab PO SCH (21:00)
[2023-12-20 04:35] VITALS: BP 123/64
--- NOTE | 2023-12-20 06:23 | NUR ---
SHIFT SUMMARY NOC PT A/O X 3. [place]. CONFUSED, BUT PLEASANT AND COOPERATIVE WITH CARE. VSS. PT BACK PAIN FROM RECENT FALLS BEING MANAGED PER EMAR. DURING HS VS PT WAS ASLEEP AND SPO2 WAS 88-90% ON RA, SO PT PLACED ON 2L/NC WHILE ASLEEP AND SPO2 >94%. PT HAS PUREWICK IN PLACE FOR INCONTINENCE. PT DID NOT VOID DURING SHIFT AND BLADDER SCAN @ 0615 SHOWED 136 ML IN BLADDER. PT HAS SLEPT FOR MAJORITY OF SHIFT. PT AWAITING SNF PLACEMENT FOR DISCHARGE FOR REHAB. PT CURRENTLY RESTING WITH BED IN LOWEST POSITION, AND CALL LIGHT WITHIN REACH.
[2023-12-20 07:28] VITALS: BP 139/66
[2023-12-20] MEDS ORDERED: Enoxaparin 40 MG/0.4 ML SYR SC SCH (09:00)
[2023-12-20] MEDS ORDERED: Sertraline HCl 50 MG Tab PO SCH (09:00)
[2023-12-20] MEDS ORDERED: Lisinopril 20 MG Tab PO SCH (09:00)
[2023-12-20] MEDS ORDERED: Atorvastatin 40 MG Tab PO SCH (09:00)
--- NOTE | 2023-12-20 15:00 | NUR ---
FAXED HOME [facility] TO OBTAIN COPY OF PATIENT'S CURRENT MEDICATIONS, PHARMACY CLOSED UNTIL FRIDAY.
[2023-12-20 15:13] VITALS: BP 113/64
--- NOTE | 2023-12-20 17:45 | NUR ---
SHIFT SUMMARY PATIENT A/OX3, ABLE TO MAKE NEEDS KNOWN. ANXIOUS AND TEARFUL THIS MORNING, PRN HYDROXYZINE ADMINISTERED. PATIENT'S MOOD IMPROVED AND BECAME MORE WILLING TO PARTICIPATE IN CARE. [facility] 2 PERSON EXTENSIVE ASSIST WITH ENCOURAGEMENT. ORTHO CONSULTED AND DR. MENARD ASSESSED PATIENT AND ORDERED A CT SCAN FOR RIGHT FEMUR AND KNEE. PATIENT TITRATED OFF OXYGEN, SPO2 WNL ON ROOM AIR. CAREGIVER, GLADYS, CAME TO VISIT THIS AFTERNOON AND BROUGHT PATIENT'S HEARING AIDES AND CELLPHONE. HEARING AIDES NON FUNCTIONAL AT ARRIVAL D/T BEING BLOCKED WITH COPIOUS AMOUNTS OF EAR WAX. HEARING AIDES CLEANED AND PLACED ON RESEARCH EPIDEMIOLOGIST AT THIS TIME. NO OTHER CONCERNS AT THIS TIME.
[2023-12-20 20:00] VITALS: BP 115/60
[2023-12-21] MEDS ORDERED: IBU800 M1 PO (00:36)
[2023-12-21] MEDS ORDERED: FLUTICASONE-SA1 EA10 INH (00:37)
[2023-12-21 03:44] VITALS: BP 121/63
--- NOTE | 2023-12-21 05:30 | NUR ---
SHIFT SUMMARY NOC PT A/O X 3. FORGETFUL AT TIMES, BUT PLEASANT AND COOPERATIVE WITH CARE. VSS. NO ACUTE CHANGES TO REPORT. PT BACK AND R KNEE PAIN BEING MANAGED PER EMAR. PT HAS SLEPT MAJORITY OF SHIFT. PT AWAITING SNF PLACEMENT. PT CURRENTLY RESTING WITH BED IN LOWEST POSITION, AND CALL LIGHT WITHIN REACH.
[2023-12-21 07:32] VITALS: BP 130/64
[2023-12-21 15:28] VITALS: BP 111/72
--- NOTE | 2023-12-21 17:09 | NUR ---
SHIFT SUMMARY PATIENT A/OX3, ABLE TO MAKE NEEDS KNOWN. FORGETFUL AT TIMES. PLEASANT WITH STAFF, ANXIOUS. ABLE TO AMBULATE TO THE BATHROOM AND GET IN THER RECLINER 1 PERSON ASSIST WITH ENCOURAGEMENT AND CUES. COMPLAINING OF BACK PAIN PRIMARILY, PRN NORCO GIVEN PER MAR. MINIMAL ORAL INTAKE AT MEALTIME. PATIENT'S CAREGIVER, GLADYS, CAME TO VISIT THIS EVENING. NO OTHER CONCERNS AT THIS TIME.
[2023-12-21 20:51] VITALS: BP 117/81
--- NOTE | 2023-12-22 02:28 | NUR ---
SHIFT SUMMARY NOC PT A/O X 3, [place]. FORGETFUL AT TIMES, BUT PLEASANT AND COOPERATIVE WITH CARE. VSS. NO ACUTE EVENTS TO REPORT. PT PAIN AND ANXIETY BEING MANAGED PER EMAR. PT STILL HAVING POOR PO INTAKE AND MINIMAL INCONTINENT URINE OUTPUT. PT STILL AWAITING SNF PLACEMENT. PT CURRENTLY RESTING WITH BED IN LOWEST POSITION, AND CALL LIGHT WITHIN REACH.
[2023-12-22 04:15] VITALS: BP 117/61
[2023-12-22 08:01] VITALS: BP 111/71
[2023-12-22 14:51] LABS: BASOPHILS ABSOLUTE AUTO 0.05 K/mm3 (0.00-0.23); BASOPHILS PERCENT AUTO 1 % (0-2); EOSINOPHILS ABSOLUTE AUTO 0.16 K/mm3 (0.00-0.68); EOSINOPHILS PERCENT AUTO 2 % (0-6); Hematocrit 37.4 % (33.0-51.0); Hemoglobin 12.4 g/dL (11.5-16.0); IMMATURE GRAN ABSOLUTE AUTO 0.02 K/mm3 (0.00-0.10); IMMATURE GRAN PERCENT AUTO 0 % (0-1); LYMPHOCYTES ABSOLUTE AUTO 1.77 K/mm3 (0.84-5.20); LYMPHOCYTES PERCENT AUTO 26 % (21-46); MONOCYTES ABSOLUTE AUTO 0.62 K/mm3 (0.16-1.47); MONOCYTES PERCENT AUTO 9 % (4-13); Mean Corpuscular HGB 36.7 pg (26.0-34.0); Mean Corpuscular HGB Conc 33.2 g/dL (31.5-36.5); Mean Corpuscular Volume 111 fL (80-100); Mean Platelet Volume 9.4 fL (9.1-12.4); NEUTROPHILS ABSOLUTE AUTO 4.09 K/mm3 (1.96-9.15); NEUTROPHILS PERCENT AUTO 61 % (41-73); Platelet Count 239 K/mm3 (150-400); RDW Coefficient Variation 15.2 % (11.7-14.2); RDW Standard Deviation 61.7 fL (35.1-46.3); Red Blood Cell Count 3.38 M/mm3 (3.80-5.20); White Blood Cell Count 6.71 K/mm3 (4.00-11.30)
[2023-12-22 15:11] LABS: Albumin, Blood 2.9 g/dL (3.4-5.0); Albumin/Globulin Ratio 0.9 (0.8-1.8); Bilirubin, Total 0.9 mg/dL (0.1-1.0); Bun/Creatinine Ratio 26.3 (12.0-20.0); Calcium, Blood 8.8 mg/dL (8.5-10.1); Creatinine, Blood 0.84 mg/dL (0.40-1.00); Globulin, Blood 3.2 g/dL (2.2-4.0); Total Protein, Blood 6.1 g/dL (6.4-8.2)
--- NOTE | 2023-12-22 16:24 | NUR ---
SHIFT SUMMARY- PT ALERT AND ORIENTED, 1PA WITH AMBULATION. PT WALKED A LITTLE WITH PT TODAY AND WAS ASSISTED TO THE BATHROOM WHERE SHE WAS THEN ASSISTED TO THE SHOWER. PT HAS NAPPED WELL SINCE THE COMPLETION OF THE WALK AND SHOWER. PT WAS MEDICATED FOR PAIN ONCE THIS SHIFT. WILL REEVALUATE HER PAIN ON NEXT ROUNDS. WILL PASS ON TO NIGHT RN IN BEDSIDE REPORT.
[2023-12-22 17:47] VITALS: BP 127/73
[2023-12-22 19:59] VITALS: BP 128/73
[2023-12-22] MEDS ORDERED: Enoxaparin 40 MG/0.4 ML SYR SC SCH (21:00)
[2023-12-23 02:04] VITALS: BP 122/61
--- NOTE | 2023-12-23 04:12 | NUR ---
SHIFT SUMMARY ADMITTED FOR AMBULATORY DYSFUNCTION. DNR CODE. PLAN IS FOR PLACEMENT. DR. MENARD IS ORTHO CONSULT. 1 ASSIST W/FWW & GB -BRP. CARDIAC DIET. EXTREMELY [place]. PO PAIN RX GIVEN THIS SHIFT. ANXIETY MEDICATION GIVEN THIS SHIFT. RIGHT KNEE PAIN REPORTED, SEVERE ARTHRITIS. HX OF FREQUENT FALLS.
[2023-12-23 07:38] VITALS: BP 118/61
[2023-12-23] MEDS ORDERED: LISI20 PO (10:15)
[2023-12-23] MEDS ORDERED: ACET325 PO (10:15)
[2023-12-23] MEDS ORDERED: ATOR40TA PO (10:15)
[2023-12-23] MEDS ORDERED: SERT50 PO (10:16)
[2023-12-23] MEDS ORDERED: Nicoderm Cq1 EAC1 TOP (10:16)
--- NOTE | 2023-12-23 12:14 | NUR ---
DISCHARGE NOTE- PT WAS GIVENVERBAL AND WRITTEN DISCHARGE INSTRUCTIONS AND ACKNOWLEDGED UNDERSTANDING OF THEM. HARD COPY SCRIPT PROVIDED FOR STACY. PT TAKEN VIA WC TRANSPORT BACK HOME. PER CARE MANAGEMENT CAREGIVERS NOTIFIED. PT DAUGHTER'S PHON NUMBER ON FILE IS NOT CORRECT. CALLED HER OTHER FAMILY CONTACT (HER AUNT) HER AUNT IS AWARE NOW THAT THE PT IS GOING HOME TODAY. IV DC'D PRIOR TO DISCHARGE. NO S&S OF DISTRESS AT THE TIME OF PT DISCHARGE.
== END 2023-12-23 12:12 | disposition home health service (06) ==
LOC: ER 13:52 → MEDS 13:53 → ER 12-19 13:53 → MEDS 12-19 13:53
PROVIDERS: Emergency Medicine; Internal Medicine; ADMIT Family Medicine
DX: R29.6 Repeated falls (principal); M17.11 Unilateral primary osteoarthritis, right knee; R53.1 Weakness; I25.2 Old myocardial infarction; F17.210 Nicotine dependence, cigarettes, uncomplicated; Z86.73 Personal history of transient ischemic attack (TIA), and cerebral infarction without residual deficits; Z79.01 Long term (current) use of anticoagulants; Z79.899 Other long term (current) drug therapy
CPT/HCPCS: 0241U; 36415; 72170; 73552; 73700; 80053; 81001; 85025; 94640; 94664; 94760; 96372; 96374; 97116; 97162; 97165; 97530; 97535; 99285-25; A9270; G0378; J1650; J1885